=== PATIENT | female | born 1935 | race Caucasian/White ===

== ENCOUNTER 2022-05-18 10:27 | Inpatient (IN) | payer MEDICARE ==
[2022-05-18 11:20] LABS: #Monocytes 0.6 10x3/uL (0.0-1.1); #Neutrophils 6.3 10x3/uL (1.5-8.4); %Basophils 0.3 % (0.0-2.0); %Eosinophils 0.1 % (0.0-6.0); %Lymphocytes 8.1 % (18.0-47.0); %Monocytes 7.7 % (0.0-10.0); %Neutrophils 83.5 % (40.0-75.0); Hemoglobin 10.7 g/dL (12.0-15.5); Mean Corpuscular HGB CONC 29.5 g/dL (32.0-36.0); Mean Corpuscular Hemoglobin 26.6 pg (27.0-33.0); Mean Corpuscular Volume 90.1 fl (81.6-98.3); Mean Platelet Volume 9.7 fl (7.4-10.4); Platelet Count 278 10x3/uL (150-450); RBC Distribution Width 16.7 % (11.5-14.5); Red Blood Cell (RBC) Count 4.03 10x6/uL (3.90-5.03); White Blood Cell (WBC) Count 7.5 10x3/uL (3.5-10.5)
[2022-05-18 11:24] LABS: ALT (SGPT) 32 U/L (8-55); AST (SGOT) 40 U/L (5-34); Albumin 3.6 g/dL (3.4-4.8); Alkaline Phosphatase 84 U/L (40-110); Anion Gap 13 mmol/L (10-20); BUN (Urea Nitrogen) 46 mg/dL (9.8-20.1); Bilirubin, Total 0.9 mg/dL (0.2-1.2); Calc. Creatinine Clearance 0 mL/min (70-130); Calcium 9.1 mg/dL (7.8-10.44); Carbon Dioxide 29 mmol/L (23-31); Chloride 103 mmol/L (98-107); Estimated GFR 37; Glucose 115 mg/dL (83-110); Potassium 4.7 mmol/L (3.5-5.1); Protein, Total 6.6 g/dL (5.8-8.1); Sodium 140 mmol/L (136-145)
[2022-05-18] MEDS ORDERED: Furosemide 40 MG/4 ML VIAL ONE (11:41)
[2022-05-18 11:57] LABS: Anisocytosis SLIGHT = 6-15 cells (100X) (0-5/hpf); Poikilocytosis SLIGHT = 6-15 cells (100X) (0-5/hpf)
[2022-05-18 12:00] LABS: Ovalocytes SLIGHT = 2-5 cells (100X) (0-1/hpf); Platelet Morphology Comment Appears Adequate
[2022-05-18] MEDS ORDERED: Ondansetron PF 4 MG/2 ML Vial IVP PRN (12:21)
[2022-05-18] MEDS ORDERED: Acetaminophen 325 MG TAB PO PRN (12:21)
[2022-05-18] MEDS ORDERED: Ondansetron ODT 4 MG TAB PO PRN (12:21)
[2022-05-18] MEDS ORDERED: Aspirin Chewable 81 MG TAB ONE (12:31)
[2022-05-18 12:55] LABS: Bilirubin Neg (Negative); Blood, Urine Negative (Negative); Clarity Clear (Clear); Glucose, Urine (Dipstick) Normal (Negative); Ketone, Urine Negative (Negative); Leukocyte 25 (Negative); Nitrite Negative (Negative); Protein, Urine (Dipstick) 30 mg/dl (Neg-Trace); Specific Gravity, Urine 1.015 (1.005-1.030); Urobilinogen Normal mg/dL (Less than 2)
[2022-05-18 13:06] LABS: PTT 38.8 sec (22.0-33.0); Prothrombin Time 85.5 sec (9.5-12.1)
[2022-05-18 13:08] LABS: RBC/HPF 0-3 HPF (0-3)
[2022-05-18 13:09] LABS: INR-International Normal Ratio 8.9
[2022-05-18 13:09] LABS: Bacteria/HPF 1+ HPF (None Seen)
[2022-05-18] MEDS ORDERED: Electrolyte Replacement Protocol 1 EACH FS SCH (13:15)
[2022-05-18 13:18] LABS: Magnesium 2.5 mg/dL (1.6-2.6)
[2022-05-18] MEDS ORDERED: Phytonadione 10 MG/ML AMP PO SCH (14:00)
[2022-05-18] MEDS ORDERED: Phytonadione 1 MG/0.5 ML Miniject SYRINGE IM SCH (14:15)
[2022-05-18 14:24] LABS: Troponin I 0.028 ng/mL (< 0.028)
[2022-05-18] MEDS ORDERED: Phytonadione 10 MG/ML AMP SC SCH (15:00)
[2022-05-18] MEDS: Furosemide 40 MG/4 ML VIAL SLOW IVP SCH (16:24)
[2022-05-18 17:04] LABS: Troponin I 0.021 ng/mL (< 0.028)
[2022-05-18] MEDS: Ipratropium Bromide 2.5 ml Neb NEB SCH (20:07)
[2022-05-18] MEDS: Verapamil 80 MG TAB PO SCH (20:51)
[2022-05-18] MEDS ORDERED: Warfarin Sodium 3 MG TAB PO SCH (21:00)
[2022-05-18 22:19] LABS: PTT 37.5 sec (22.0-33.0); Prothrombin Time 62.5 sec (9.5-12.1)
[2022-05-18 22:47] LABS: INR-International Normal Ratio 6.4
[2022-05-19 04:39] LABS: #Monocytes 0.6 10x3/uL (0.0-1.1); #Neutrophils 5.4 10x3/uL (1.5-8.4); %Basophils 0.3 % (0.0-2.0); %Eosinophils 0.5 % (0.0-6.0); %Lymphocytes 7.8 % (18.0-47.0); %Neutrophils 82.1 % (40.0-75.0); Hemoglobin 10.1 g/dL (12.0-15.5); Mean Corpuscular HGB CONC 29.9 g/dL (32.0-36.0); Mean Corpuscular Hemoglobin 26.9 pg (27.0-33.0); Mean Corpuscular Volume 89.9 fl (81.6-98.3); Mean Platelet Volume 9.4 fl (7.4-10.4); Platelet Count 259 10x3/uL (150-450); RBC Distribution Width 16.6 % (11.5-14.5); Red Blood Cell (RBC) Count 3.76 10x6/uL (3.90-5.03); White Blood Cell (WBC) Count 6.6 10x3/uL (3.5-10.5)
[2022-05-19 04:45] LABS: ALT (SGPT) 25 U/L (8-55); AST (SGOT) 31 U/L (5-34); Albumin 3.4 g/dL (3.4-4.8); Alkaline Phosphatase 80 U/L (40-110); Anion Gap 13 mmol/L (10-20); BUN (Urea Nitrogen) 43 mg/dL (9.8-20.1); Bilirubin, Total 0.8 mg/dL (0.2-1.2); Calc. Creatinine Clearance 77 mL/min (70-130); Calcium 8.7 mg/dL (7.8-10.44); Carbon Dioxide 30 mmol/L (23-31); Chloride 103 mmol/L (98-107); Estimated GFR 43; Globulin 2.6 g/dL (2.4-3.5); Glucose 118 mg/dL (83-110); Phosphorus 2.9 mg/dL (2.3-4.7); Potassium 4.3 mmol/L (3.5-5.1); Sodium 142 mmol/L (136-145)
[2022-05-19] MEDS: Furosemide 40 MG/4 ML VIAL SLOW IVP SCH ×2 (07:37→14:32)
[2022-05-19] MEDS: Ipratropium Bromide 2.5 ml Neb NEB SCH ×2 (08:30→20:22)
[2022-05-19 09:15] VITALS: BMI 22.7
[2022-05-19] MEDS: Aspirin Chewable 81 MG TAB PO SCH (09:16)
[2022-05-19] MEDS: Aspirin 81 mg Enteric Coated Tablet PO SCH (09:16)
[2022-05-19] MEDS: Atenolol 50 MG TAB PO SCH (09:16)
[2022-05-19] MEDS: Verapamil 80 MG TAB PO SCH ×2 (09:16→21:26)
[2022-05-19 09:59] LABS: INR-International Normal Ratio 3.3; Prothrombin Time 33.7 sec (9.5-12.1)
[2022-05-20 04:05] LABS: #Monocytes 0.7 10x3/uL (0.0-1.1); #Neutrophils 5.7 10x3/uL (1.5-8.4); %Basophils 0.1 % (0.0-2.0); %Eosinophils 0.4 % (0.0-6.0); %Lymphocytes 12.5 % (18.0-47.0); %Monocytes 9.3 % (0.0-10.0); %Neutrophils 77.3 % (40.0-75.0); Hemoglobin 10.2 g/dL (12.0-15.5); Mean Corpuscular Hemoglobin 26.3 pg (27.0-33.0); Mean Corpuscular Volume 90.7 fl (81.6-98.3); Mean Platelet Volume 9.4 fl (7.4-10.4); Platelet Count 236 10x3/uL (150-450); RBC Distribution Width 16.4 % (11.5-14.5); Red Blood Cell (RBC) Count 3.88 10x6/uL (3.90-5.03); White Blood Cell (WBC) Count 7.4 10x3/uL (3.5-10.5)
[2022-05-20 04:21] LABS: Polychromasia SLIGHT = 2-3 cells (100X) (0-2/hpf)
[2022-05-20 04:22] LABS: Hypochromia SLIGHT = 6-15 cells (100X) (0-5/hpf); Platelet Morphology Comment Appears Adequate; Target Cells SLIGHT = 2-5 cells (100X) (0-1/hpf)
[2022-05-20 04:32] LABS: ALT (SGPT) 25 U/L (8-55); AST (SGOT) 34 U/L (5-34); Albumin 3.4 g/dL (3.4-4.8); Alkaline Phosphatase 86 U/L (40-110); Anion Gap 13 mmol/L (10-20); BUN (Urea Nitrogen) 37 mg/dL (9.8-20.1); Bilirubin, Total 0.8 mg/dL (0.2-1.2); Calc. Creatinine Clearance 40 mL/min (70-130); Calcium 8.9 mg/dL (7.8-10.44); Carbon Dioxide 33 mmol/L (23-31); Chloride 100 mmol/L (98-107); Estimated GFR 51; Globulin 2.7 g/dL (2.4-3.5); Glucose 124 mg/dL (83-110); Potassium 4.2 mmol/L (3.5-5.1); Protein, Total 6.1 g/dL (5.8-8.1); Sodium 142 mmol/L (136-145)
[2022-05-20] MEDS: Furosemide 40 MG/4 ML VIAL SLOW IVP SCH ×2 (05:50→14:14)
[2022-05-20] MEDS: Aspirin 81 mg Enteric Coated Tablet PO SCH (08:42)
[2022-05-20] MEDS: Verapamil 80 MG TAB PO SCH ×2 (08:43→21:15)
[2022-05-20] MEDS: Atenolol 50 MG TAB PO SCH (08:43)
[2022-05-20] MEDS: Aspirin Chewable 81 MG TAB PO SCH (08:44)
[2022-05-20] MEDS: Ipratropium Bromide 2.5 ml Neb NEB SCH ×3 (09:05→21:00)
[2022-05-21 04:33] LABS: #Eosinphils 0.1 10x3/uL (0.0-0.5); #Monocytes 0.7 10x3/uL (0.0-1.1); #Neutrophils 5.7 10x3/uL (1.5-8.4); %Basophils 0.1 % (0.0-2.0); %Eosinophils 0.7 % (0.0-6.0); %Lymphocytes 8.2 % (18.0-47.0); %Neutrophils 80.6 % (40.0-75.0); Hemoglobin 9.6 g/dL (12.0-15.5); Mean Corpuscular HGB CONC 29.6 g/dL (32.0-36.0); Mean Corpuscular Hemoglobin 26.7 pg (27.0-33.0); Mean Platelet Volume 9.5 fl (7.4-10.4); Platelet Count 224 10x3/uL (150-450); RBC Distribution Width 16.2 % (11.5-14.5); White Blood Cell (WBC) Count 7.1 10x3/uL (3.5-10.5)
[2022-05-21 04:49] LABS: ALT (SGPT) 23 U/L (8-55); AST (SGOT) 30 U/L (5-34); Albumin 3.2 g/dL (3.4-4.8); Alkaline Phosphatase 85 U/L (40-110); Anion Gap 11 mmol/L (10-20); BUN (Urea Nitrogen) 36 mg/dL (9.8-20.1); Bilirubin, Total 0.7 mg/dL (0.2-1.2); Calc. Creatinine Clearance 42 mL/min (70-130); Calcium 8.7 mg/dL (7.8-10.44); Carbon Dioxide 35 mmol/L (23-31); Chloride 98 mmol/L (98-107); Estimated GFR 50; Globulin 2.6 g/dL (2.4-3.5); Glucose 125 mg/dL (83-110); Potassium 4.1 mmol/L (3.5-5.1); Protein, Total 5.8 g/dL (5.8-8.1); Sodium 140 mmol/L (136-145)
[2022-05-21] MEDS: Furosemide 40 MG/4 ML VIAL SLOW IVP SCH ×2 (06:20→14:43)
[2022-05-21] MEDS: Ipratropium Bromide 2.5 ml Neb NEB SCH ×2 (07:25→20:26)
[2022-05-21] MEDS: Aspirin Chewable 81 MG TAB PO SCH ×2 (09:46→09:50)
[2022-05-21] MEDS: Verapamil 80 MG TAB PO SCH ×2 (09:46→21:37)
[2022-05-21] MEDS: Aspirin 81 mg Enteric Coated Tablet PO SCH (09:46)
[2022-05-21] MEDS: Atenolol 50 MG TAB PO SCH (09:46)
[2022-05-21] MEDS ORDERED: FLU VACC QS2022-23(65YR UP)/PF 240 MCG/0.7 ML SYRINGE IM ONE (17:30)
[2022-05-21 17:49] LABS: INR-International Normal Ratio 1.3; Prothrombin Time 13.7 sec (9.5-12.1)
[2022-05-22 04:18] LABS: INR-International Normal Ratio 1.3
[2022-05-22 04:19] LABS: #Monocytes 0.6 10x3/uL (0.0-1.1); #Neutrophils 6.7 10x3/uL (1.5-8.4); %Basophils 0.1 % (0.0-2.0); %Eosinophils 0.4 % (0.0-6.0); %Lymphocytes 8.7 % (18.0-47.0); %Monocytes 7.4 % (0.0-10.0); %Neutrophils 83.2 % (40.0-75.0); Hemoglobin 10.1 g/dL (12.0-15.5); Mean Corpuscular HGB CONC 29.4 g/dL (32.0-36.0); Mean Corpuscular Hemoglobin 26.9 pg (27.0-33.0); Mean Corpuscular Volume 91.5 fl (81.6-98.3); Mean Platelet Volume 9.5 fl (7.4-10.4); Platelet Count 238 10x3/uL (150-450); RBC Distribution Width 16.6 % (11.5-14.5); Red Blood Cell (RBC) Count 3.75 10x6/uL (3.90-5.03); White Blood Cell (WBC) Count 8.1 10x3/uL (3.5-10.5)
[2022-05-22 04:28] LABS: ALT (SGPT) 24 U/L (8-55); AST (SGOT) 31 U/L (5-34); Albumin 3.4 g/dL (3.4-4.8); Alkaline Phosphatase 100 U/L (40-110); Anion Gap 17 mmol/L (10-20); BUN (Urea Nitrogen) 37 mg/dL (9.8-20.1); Bilirubin, Total 0.6 mg/dL (0.2-1.2); Calc. Creatinine Clearance 44 mL/min (70-130); Calcium 9.2 mg/dL (7.8-10.44); Carbon Dioxide 35 mmol/L (23-31); Chloride 98 mmol/L (98-107); Estimated GFR 51; Glucose 140 mg/dL (83-110); Potassium 4.9 mmol/L (3.5-5.1); Protein, Total 6.4 g/dL (5.8-8.1); Sodium 145 mmol/L (136-145)
[2022-05-22] MEDS: Furosemide 40 MG/4 ML VIAL SLOW IVP SCH ×2 (05:41→13:05)
[2022-05-22] MEDS: Ipratropium Bromide 2.5 ml Neb NEB SCH ×2 (06:55→19:24)
[2022-05-22] MEDS: Aspirin Chewable 81 MG TAB PO SCH (09:33)
[2022-05-22] MEDS: Atenolol 50 MG TAB PO SCH (09:36)
[2022-05-22] MEDS: AcetaZOLAMIDE 250 MG TAB PO SCH ×2 (09:36→21:27)
[2022-05-22] MEDS: Verapamil 80 MG TAB PO SCH ×2 (09:36→21:27)
[2022-05-22] MEDS: Aspirin 81 mg Enteric Coated Tablet PO SCH (09:40)
[2022-05-22] MEDS: Warfarin Sodium 3 MG TAB PO SCH (16:09)
[2022-05-23 04:43] LABS: #Eosinphils 0.1 10x3/uL (0.0-0.5); #Monocytes 0.8 10x3/uL (0.0-1.1); #Neutrophils 5.8 10x3/uL (1.5-8.4); %Basophils 0.4 % (0.0-2.0); %Lymphocytes 8.6 % (18.0-47.0); %Monocytes 10.3 % (0.0-10.0); %Neutrophils 79.4 % (40.0-75.0); Hemoglobin 9.8 g/dL (12.0-15.5); Mean Corpuscular HGB CONC 29.9 g/dL (32.0-36.0); Mean Corpuscular Hemoglobin 27.2 pg (27.0-33.0); Mean Corpuscular Volume 91.1 fl (81.6-98.3); Mean Platelet Volume 9.4 fl (7.4-10.4); Platelet Count 223 10x3/uL (150-450); RBC Distribution Width 16.8 % (11.5-14.5); White Blood Cell (WBC) Count 7.3 10x3/uL (3.5-10.5)
[2022-05-23 04:46] LABS: INR-International Normal Ratio 1.3; Prothrombin Time 14.2 sec (9.5-12.1)
[2022-05-23 04:59] LABS: ALT (SGPT) 25 U/L (8-55); AST (SGOT) 33 U/L (5-34); Albumin 3.2 g/dL (3.4-4.8); Alkaline Phosphatase 90 U/L (40-110); Anion Gap 13 mmol/L (10-20); BUN (Urea Nitrogen) 32 mg/dL (9.8-20.1); Bilirubin, Total 0.7 mg/dL (0.2-1.2); Calc. Creatinine Clearance 50 mL/min (70-130); Calcium 8.9 mg/dL (7.8-10.44); Carbon Dioxide 35 mmol/L (23-31); Chloride 98 mmol/L (98-107); Estimated GFR 60; Globulin 2.7 g/dL (2.4-3.5); Glucose 112 mg/dL (83-110); Potassium 3.8 mmol/L (3.5-5.1); Protein, Total 5.9 g/dL (5.8-8.1); Sodium 142 mmol/L (136-145)
[2022-05-23] MEDS: Furosemide 40 MG/4 ML VIAL SLOW IVP SCH ×3 (05:53→16:15)
[2022-05-23] MEDS: Ipratropium Bromide 2.5 ml Neb NEB SCH ×2 (06:45→19:08)
[2022-05-23] MEDS: Verapamil 80 MG TAB PO SCH ×2 (08:57→22:15)
[2022-05-23] MEDS: AcetaZOLAMIDE 250 MG TAB PO SCH ×2 (08:57→22:15)
[2022-05-23] MEDS: Atenolol 50 MG TAB PO SCH (08:57)
[2022-05-23] MEDS: Aspirin 81 mg Enteric Coated Tablet PO SCH (08:57)
[2022-05-23] MEDS ORDERED: Warfarin Sodium 2 MG TAB PO SCH (17:00)
[2022-05-23] MEDS ORDERED: VANCOMYCIN 1.25 GM/250 ML BAG 1.25 GM in Premix Bag 1 BAG IVPB SCH (17:00)
[2022-05-23] MEDS: Warfarin Sodium 3 MG TAB PO SCH (17:53)
[2022-05-23] MEDS: Cefepime 1 GM in Sodium Chloride 0.9% 100 ML IVPB SCH (22:15)
[2022-05-24 05:00] LABS: INR-International Normal Ratio 1.5; Prothrombin Time 16.1 sec (9.5-12.1)
[2022-05-24] MEDS: Furosemide 40 MG/4 ML VIAL SLOW IVP SCH ×2 (05:03→13:03)
[2022-05-24 05:10] LABS: Anion Gap 15 mmol/L (10-20); BUN (Urea Nitrogen) 35 mg/dL (9.8-20.1); Calc. Creatinine Clearance 43 mL/min (70-130); Calcium 9.2 mg/dL (7.8-10.44); Carbon Dioxide 30 mmol/L (23-31); Chloride 100 mmol/L (98-107); Estimated GFR 51; Glucose 123 mg/dL (83-110); Potassium 3.5 mmol/L (3.5-5.1); Sodium 141 mmol/L (136-145)
[2022-05-24] MEDS ORDERED: Potassium Chloride 20 MEQ TAB PO SCH (06:00)
[2022-05-24] MEDS: Ipratropium Bromide 2.5 ml Neb NEB SCH ×2 (07:05→19:21)
[2022-05-24] MEDS: Cefepime 1 GM in Sodium Chloride 0.9% 100 ML IVPB SCH ×2 (08:45→20:37)
[2022-05-24] MEDS: AcetaZOLAMIDE 250 MG TAB PO SCH ×2 (08:45→20:38)
[2022-05-24] MEDS: Aspirin 81 mg Enteric Coated Tablet PO SCH (08:45)
[2022-05-24] MEDS: Verapamil 80 MG TAB PO SCH ×2 (08:45→20:38)
[2022-05-24] MEDS: Atenolol 50 MG TAB PO SCH (09:09)
[2022-05-24] MEDS: Vancomycin HCl 750 MG in Sodium Chloride 0.9% 250 ML 250 ML IVPB SCH (13:03)
[2022-05-24] MEDS: Warfarin Sodium 3 MG TAB PO SCH (16:31)
[2022-05-25] MEDS: Vancomycin HCl 750 MG in Sodium Chloride 0.9% 250 ML 250 ML IVPB SCH (05:35)
[2022-05-25] MEDS: Furosemide 40 MG/4 ML VIAL SLOW IVP SCH (05:35)
[2022-05-25 06:05] LABS: INR-International Normal Ratio 2.7; Prothrombin Time 27.7 sec (9.5-12.1)
[2022-05-25 06:10] LABS: Anion Gap 12 mmol/L (10-20); BUN (Urea Nitrogen) 37 mg/dL (9.8-20.1); Calc. Creatinine Clearance 46 mL/min (70-130); Calcium 9.1 mg/dL (7.8-10.44); Carbon Dioxide 28 mmol/L (23-31); Chloride 105 mmol/L (98-107); Estimated GFR 56; Glucose 110 mg/dL (83-110); Potassium 3.7 mmol/L (3.5-5.1); Sodium 141 mmol/L (136-145)
[2022-05-25] MEDS: Ipratropium Bromide 2.5 ml Neb NEB SCH (07:05)
[2022-05-25] MEDS: Atenolol 50 MG TAB PO SCH (08:54)
[2022-05-25] MEDS: Aspirin 81 mg Enteric Coated Tablet PO SCH (08:54)
[2022-05-25] MEDS: Cefepime 1 GM in Sodium Chloride 0.9% 100 ML IVPB SCH (08:54)
[2022-05-25] MEDS: Verapamil 80 MG TAB PO SCH (08:54)
[2022-05-25] MEDS: AcetaZOLAMIDE 250 MG TAB PO SCH (08:54)
[2022-05-25] MEDS ORDERED: Furosemide 20 MG TAB PO SCH (09:00)
[2022-05-25 12:40] VITALS: TEMP 98
[2022-05-25 14:40] VITALS: BP 120/73
== END 2022-05-25 15:56 | disposition home or self-care (01) | DRG 291 ==
LOC: CSHERS 10:27 → CSHERHOLD 13:25 → CSHTELE 14:44 → OBSVTOIN 22:18
PROVIDERS: ADMIT Hospitalist; ATTEND Internal Medicine
DX: I11.0 Hypertensive heart disease with heart failure (principal); I50.33 Acute on chronic diastolic (congestive) heart failure; J96.21 Acute and chronic respiratory failure with hypoxia; J18.9 Pneumonia, unspecified organism; I48.20 Chronic atrial fibrillation, unspecified; J44.1 Chronic obstructive pulmonary disease with (acute) exacerbation; J44.0 Chronic obstructive pulmonary disease with (acute) lower respiratory infection; I27.20 Pulmonary hypertension, unspecified; R91.1 Solitary pulmonary nodule; I07.1 Rheumatic tricuspid insufficiency; Z20.822 Contact with and (suspected) exposure to COVID-19; Z79.51 Long term (current) use of inhaled steroids; Z79.82 Long term (current) use of aspirin; Z87.891 Personal history of nicotine dependence; Z98.890 Other specified postprocedural states; Z95.810 Presence of automatic (implantable) cardiac defibrillator; Z79.01 Long term (current) use of anticoagulants; Z79.899 Other long term (current) drug therapy; Z99.81 Dependence on supplemental oxygen
CPT/HCPCS: 36415; 71045; 71046; 80048; 80053; 81003; 81015; 82553; 83735; 83880; 84100; 84484; 85025; 85610; 85730; 87081; 93005; 93306; 93970; 94640; 94760; 94799; 96374; 97139; J0692; J1940; J3370; J3430; J3490; J7050; U0003; U0005

== ENCOUNTER 2022-06-07 18:26 | Inpatient (IN) | payer MEDICARE ==
[2022-06-07] MEDS ORDERED: Senokot S 8.6-50 MG TAB PO PRN (20:07)
[2022-06-07] MEDS ORDERED: Warfarin Sodium 3 MG TAB PO SCH (20:30)
[2022-06-07] MEDS ORDERED: Furosemide 40 MG/4 ML VIAL SLOW IVP SCH (20:30)
[2022-06-07] MEDS: Verapamil 80 MG TAB PO SCH (20:33)
[2022-06-07 20:46] LABS: Magnesium 2.2 mg/dL (1.6-2.6)
[2022-06-07 20:51] LABS: Troponin I 0.025 ng/mL (< 0.028)
[2022-06-08] MEDS: Ipratropium/Albuterol 3 ML NEB NEB SCH ×4 (01:24→18:38)
[2022-06-08 05:36] LABS: #Monocytes 0.6 10x3/uL (0.0-1.1); #Neutrophils 5.2 10x3/uL (1.5-8.4); %Basophils 0.6 % (0.0-2.0); %Eosinophils 0.3 % (0.0-6.0); %Lymphocytes 14.6 % (18.0-47.0); %Monocytes 8.6 % (0.0-10.0); %Neutrophils 75.6 % (40.0-75.0); Mean Corpuscular HGB CONC 28.6 g/dL (32.0-36.0); Mean Corpuscular Hemoglobin 25.6 pg (27.0-33.0); Mean Corpuscular Volume 89.7 fl (81.6-98.3); Mean Platelet Volume 8.9 fl (7.4-10.4); Platelet Count 368 10x3/uL (150-450); RBC Distribution Width 18.8 % (11.5-14.5); White Blood Cell (WBC) Count 6.9 10x3/uL (3.5-10.5)
[2022-06-08 05:43] LABS: Anion Gap 15 mmol/L (10-20); BUN (Urea Nitrogen) 32 mg/dL (9.8-20.1); Calc. Creatinine Clearance 39 mL/min (70-130); Calcium 8.7 mg/dL (7.8-10.44); Carbon Dioxide 30 mmol/L (23-31); Chloride 103 mmol/L (98-107); Estimated GFR 46; Glucose 119 mg/dL (83-110); Sodium 143 mmol/L (136-145)
[2022-06-08 05:48] LABS: INR-International Normal Ratio 3.8; Prothrombin Time 38.5 sec (9.5-12.1)
[2022-06-08] MEDS: Furosemide 40 MG/4 ML VIAL SLOW IVP SCH ×2 (06:52→14:16)
[2022-06-08] MEDS: Losartan 25 MG TAB PO SCH (08:04)
[2022-06-08] MEDS: Atenolol 50 MG TAB PO SCH (08:04)
[2022-06-08] MEDS: Verapamil 80 MG TAB PO SCH ×2 (08:04→20:20)
[2022-06-08] MEDS: Aspirin 81 mg Enteric Coated Tablet PO SCH (08:05)
[2022-06-08] MEDS: Saccharomyces boulardii 250 MG CAP PO SCH (08:05)
[2022-06-08] MEDS ORDERED: Warfarin Sodium 3 MG TAB PO SCH (17:00)
[2022-06-08] MEDS: Acetaminophen 325 MG TAB PO PRN (22:07)
[2022-06-09] MEDS: Ipratropium/Albuterol 3 ML NEB NEB SCH ×4 (02:28→19:01)
[2022-06-09 05:20] LABS: Anion Gap 14 mmol/L (10-20); BUN (Urea Nitrogen) 32 mg/dL (9.8-20.1); Calc. Creatinine Clearance 37 mL/min (70-130); Calcium 8.6 mg/dL (7.8-10.44); Carbon Dioxide 32 mmol/L (23-31); Chloride 102 mmol/L (98-107); Estimated GFR 48; Glucose 105 mg/dL (83-110); Potassium 4.5 mmol/L (3.5-5.1); Sodium 143 mmol/L (136-145)
[2022-06-09 05:25] LABS: INR-International Normal Ratio 4.2; Prothrombin Time 42.4 sec (9.5-12.1)
[2022-06-09] MEDS: Furosemide 40 MG/4 ML VIAL SLOW IVP SCH ×2 (05:27→15:32)
[2022-06-09] MEDS: Acetaminophen 325 MG TAB PO PRN (05:27)
[2022-06-09] MEDS: Losartan 25 MG TAB PO SCH ×2 (10:51→10:56)
[2022-06-09] MEDS: Aspirin 81 mg Enteric Coated Tablet PO SCH (10:52)
[2022-06-09] MEDS: Atenolol 50 MG TAB PO SCH (10:52)
[2022-06-09] MEDS: Verapamil 80 MG TAB PO SCH ×2 (10:52→20:38)
[2022-06-09] MEDS: Saccharomyces boulardii 250 MG CAP PO SCH (10:55)
[2022-06-09] MEDS ORDERED: Electrolyte Replacement Protocol 1 EACH FS SCH (19:30)
[2022-06-09] MEDS ORDERED: Lidocaine 1% (PF) 30 ML VIAL ONE (20:57)
[2022-06-09] MEDS ORDERED: CEFAZOLIN 1 GM VIAL ONE (20:58)
[2022-06-09] MEDS ORDERED: Gentamicin 80 MG/2 ML VIAL ONE (20:58)
[2022-06-10] MEDS: Ipratropium/Albuterol 3 ML NEB NEB SCH ×4 (01:08→18:45)
[2022-06-10 06:05] LABS: INR-International Normal Ratio 2.8; Prothrombin Time 28.8 sec (9.5-12.1)
[2022-06-10] MEDS: Furosemide 40 MG/4 ML VIAL SLOW IVP SCH ×2 (06:05→14:47)
[2022-06-10 06:06] LABS: #Basophils 0.1 10x3/uL (0.0-0.2); #Eosinphils 0.1 10x3/uL (0.0-0.5); #Monocytes 0.5 10x3/uL (0.0-1.1); #Neutrophils 4.6 10x3/uL (1.5-8.4); %Eosinophils 1.1 % (0.0-6.0); %Lymphocytes 13.6 % (18.0-47.0); %Monocytes 8.8 % (0.0-10.0); %Neutrophils 75.3 % (40.0-75.0); Hemoglobin 9.8 g/dL (12.0-15.5); Mean Corpuscular HGB CONC 28.6 g/dL (32.0-36.0); Mean Corpuscular Hemoglobin 25.5 pg (27.0-33.0); Mean Corpuscular Volume 89.3 fl (81.6-98.3); Platelet Count 321 10x3/uL (150-450); RBC Distribution Width 18.4 % (11.5-14.5); Red Blood Cell (RBC) Count 3.84 10x6/uL (3.90-5.03); White Blood Cell (WBC) Count 6.1 10x3/uL (3.5-10.5)
[2022-06-10 06:09] LABS: Anion Gap 12 mmol/L (10-20); BUN (Urea Nitrogen) 26 mg/dL (9.8-20.1); Calc. Creatinine Clearance 46 mL/min (70-130); Calcium 8.7 mg/dL (7.8-10.44); Carbon Dioxide 35 mmol/L (23-31); Chloride 99 mmol/L (98-107); Estimated GFR 61; Glucose 99 mg/dL (83-110); Magnesium 2.2 mg/dL (1.6-2.6); Potassium 4.5 mmol/L (3.5-5.1); Sodium 141 mmol/L (136-145)
[2022-06-10] MEDS: Losartan Potassium 50 MG TAB PO SCH (08:42)
[2022-06-10] MEDS: Saccharomyces boulardii 250 MG CAP PO SCH (08:42)
[2022-06-10] MEDS ORDERED: Warfarin Sodium 2 MG TAB PO SCH (17:00)
[2022-06-11] MEDS: Ipratropium/Albuterol 3 ML NEB NEB SCH ×4 (02:04→19:25)
[2022-06-11 05:23] LABS: INR-International Normal Ratio 1.8; Prothrombin Time 19.1 sec (9.5-12.1)
[2022-06-11 05:26] LABS: BUN (Urea Nitrogen) 26 mg/dL (9.8-20.1); Calc. Creatinine Clearance 46 mL/min (70-130); Calcium 8.8 mg/dL (7.8-10.44); Estimated GFR 61; Glucose 101 mg/dL (83-110)
[2022-06-11 05:33] LABS: Anion Gap 15 mmol/L (10-20); Carbon Dioxide 36 mmol/L (23-31); Chloride 96 mmol/L (98-107); Potassium 4.3 mmol/L (3.5-5.1); Sodium 143 mmol/L (136-145)
[2022-06-11] MEDS: Furosemide 40 MG/4 ML VIAL SLOW IVP SCH ×2 (06:25→15:03)
[2022-06-11] MEDS: Losartan Potassium 50 MG TAB PO SCH (08:39)
[2022-06-11] MEDS: Saccharomyces boulardii 250 MG CAP PO SCH (08:39)
[2022-06-11] MEDS ORDERED: Phytonadione 10 MG/ML AMP SC SCH (11:30)
[2022-06-12] MEDS: Ipratropium/Albuterol 3 ML NEB NEB SCH ×4 (01:05→20:01)
[2022-06-12 04:49] LABS: #Basophils 0.1 10x3/uL (0.0-0.2); #Eosinphils 0.1 10x3/uL (0.0-0.5); #Monocytes 0.6 10x3/uL (0.0-1.1); %Basophils 0.9 % (0.0-2.0); %Eosinophils 1.1 % (0.0-6.0); %Lymphocytes 10.6 % (18.0-47.0); %Monocytes 8.6 % (0.0-10.0); %Neutrophils 78.6 % (40.0-75.0); Hemoglobin 9.8 g/dL (12.0-15.5); Mean Corpuscular HGB CONC 28.7 g/dL (32.0-36.0); Mean Corpuscular Hemoglobin 25.6 pg (27.0-33.0); Mean Corpuscular Volume 89.3 fl (81.6-98.3); Mean Platelet Volume 8.4 fl (7.4-10.4); Platelet Count 278 10x3/uL (150-450); RBC Distribution Width 18.5 % (11.5-14.5); Red Blood Cell (RBC) Count 3.83 10x6/uL (3.90-5.03); White Blood Cell (WBC) Count 6.4 10x3/uL (3.5-10.5)
[2022-06-12 04:53] LABS: INR-International Normal Ratio 1.5; Prothrombin Time 15.6 sec (9.5-12.1)
[2022-06-12 05:05] LABS: BUN (Urea Nitrogen) 24 mg/dL (9.8-20.1); Calc. Creatinine Clearance 48 mL/min (70-130); Calcium 8.9 mg/dL (7.8-10.44); Estimated GFR 64; Glucose 101 mg/dL (83-110)
[2022-06-12 05:13] LABS: Anion Gap 14 mmol/L (10-20); Carbon Dioxide 37 mmol/L (23-31); Chloride 96 mmol/L (98-107); Potassium 4.9 mmol/L (3.5-5.1); Sodium 142 mmol/L (136-145)
[2022-06-12 05:25] LABS: Anisocytosis SLIGHT = 6-15 cells (100X) (0-5/hpf); Hypochromia SLIGHT = 6-15 cells (100X) (0-5/hpf); Platelet Morphology Comment Appears Adequate; Polychromasia SLIGHT = 2-3 cells (100X) (0-2/hpf)
[2022-06-12] MEDS: Furosemide 40 MG/4 ML VIAL SLOW IVP SCH (06:15)
[2022-06-12] MEDS: Saccharomyces boulardii 250 MG CAP PO SCH (08:10)
[2022-06-12] MEDS: Losartan Potassium 50 MG TAB PO SCH (08:10)
[2022-06-12] MEDS ORDERED: Iopamidol 300 61% 100 ML VIAL FS ONE (09:51)
[2022-06-12] MEDS ORDERED: Lidocaine 1% (PF) 30 ML VIAL ONE (11:09)
[2022-06-12] MEDS ORDERED: CEFAZOLIN 1 GM VIAL ONE (11:09)
[2022-06-12] MEDS ORDERED: Gentamicin 80 MG/2 ML VIAL ONE (11:09)
[2022-06-12] MEDS ORDERED: Sodium Chloride 0.9% 2,000 ML ONE (11:10)
[2022-06-12] MEDS ORDERED: Fentanyl 100 MCG/2 ML VIAL ONE (11:56)
[2022-06-12] MEDS ORDERED: Midazolam HCl 2 mg/2 ml Vial ONE (11:57)
[2022-06-12] MEDS: Warfarin Sodium 2 MG TAB PO SCH (16:38)
[2022-06-12] MEDS: Cephalexin 250 MG CAP PO SCH (21:20)
[2022-06-13] MEDS: Ipratropium/Albuterol 3 ML NEB NEB SCH ×4 (02:42→19:07)
[2022-06-13 05:07] LABS: INR-International Normal Ratio 1.3; Prothrombin Time 13.5 sec (9.5-12.1)
[2022-06-13 05:16] LABS: Anion Gap 14 mmol/L (10-20); BUN (Urea Nitrogen) 26 mg/dL (9.8-20.1); Calc. Creatinine Clearance 50 mL/min (70-130); Calcium 9.1 mg/dL (7.8-10.44); Carbon Dioxide 37 mmol/L (23-31); Chloride 95 mmol/L (98-107); Estimated GFR 67; Glucose 115 mg/dL (83-110); Potassium 4.6 mmol/L (3.5-5.1); Sodium 141 mmol/L (136-145)
[2022-06-13] MEDS: Furosemide 40 MG TAB PO SCH (07:56)
[2022-06-13] MEDS: Cephalexin 250 MG CAP PO SCH ×2 (07:56→21:39)
[2022-06-13] MEDS: Saccharomyces boulardii 250 MG CAP PO SCH (07:57)
[2022-06-13] MEDS: Losartan Potassium 50 MG TAB PO SCH (07:57)
[2022-06-13] MEDS: Warfarin Sodium 2 MG TAB PO SCH (17:36)
[2022-06-14] MEDS: Acetaminophen 325 MG TAB PO PRN ×2 (00:42→08:18)
[2022-06-14] MEDS: Ipratropium/Albuterol 3 ML NEB NEB SCH ×4 (01:13→19:28)
[2022-06-14 04:40] LABS: INR-International Normal Ratio 1.3; Prothrombin Time 14.4 sec (9.5-12.1)
[2022-06-14 04:50] LABS: BUN (Urea Nitrogen) 21 mg/dL (9.8-20.1); Calc. Creatinine Clearance 53 mL/min (70-130); Calcium 8.8 mg/dL (7.8-10.44); Estimated GFR 73; Glucose 102 mg/dL (83-110)
[2022-06-14 04:57] LABS: Anion Gap 13 mmol/L (10-20); Carbon Dioxide 38 mmol/L (23-31); Chloride 93 mmol/L (98-107); Sodium 140 mmol/L (136-145)
[2022-06-14 05:41] VITALS: BMI 23.0
[2022-06-14] MEDS: Cephalexin 250 MG CAP PO SCH ×2 (08:17→23:02)
[2022-06-14] MEDS: Saccharomyces boulardii 250 MG CAP PO SCH (08:17)
[2022-06-14] MEDS: Losartan Potassium 50 MG TAB PO SCH (08:18)
[2022-06-14] MEDS: Furosemide 40 MG TAB PO SCH (08:18)
[2022-06-14] MEDS: Warfarin Sodium 2 MG TAB PO SCH (17:03)
[2022-06-15] MEDS: Ipratropium/Albuterol 3 ML NEB NEB SCH ×4 (01:25→19:30)
[2022-06-15 06:40] LABS: #Monocytes 0.4 10x3/uL (0.0-1.1); #Neutrophils 4.2 10x3/uL (1.5-8.4); %Basophils 0.7 % (0.0-2.0); %Eosinophils 0.7 % (0.0-6.0); %Lymphocytes 13.3 % (18.0-47.0); %Monocytes 7.9 % (0.0-10.0); %Neutrophils 77.2 % (40.0-75.0); Hemoglobin 9.6 g/dL (12.0-15.5); Mean Corpuscular HGB CONC 28.5 g/dL (32.0-36.0); Mean Corpuscular Hemoglobin 25.3 pg (27.0-33.0); Mean Corpuscular Volume 88.9 fl (81.6-98.3); Mean Platelet Volume 8.5 fl (7.4-10.4); Platelet Count 207 10x3/uL (150-450); RBC Distribution Width 18.8 % (11.5-14.5); Red Blood Cell (RBC) Count 3.79 10x6/uL (3.90-5.03); White Blood Cell (WBC) Count 5.4 10x3/uL (3.5-10.5)
[2022-06-15 06:45] LABS: INR-International Normal Ratio 1.8
[2022-06-15 07:03] LABS: BUN (Urea Nitrogen) 18 mg/dL (9.8-20.1); Calc. Creatinine Clearance 51 mL/min (70-130); Calcium 9.3 mg/dL (7.8-10.44); Estimated GFR 70; Glucose 107 mg/dL (83-110)
[2022-06-15 07:10] LABS: Anion Gap 14 mmol/L (10-20); Carbon Dioxide 39 mmol/L (23-31); Chloride 94 mmol/L (98-107); Potassium 5.5 mmol/L (3.5-5.1); Sodium 141 mmol/L (136-145)
[2022-06-15] MEDS: Furosemide 40 MG TAB PO SCH (08:04)
[2022-06-15] MEDS: Losartan Potassium 50 MG TAB PO SCH (08:04)
[2022-06-15] MEDS: Saccharomyces boulardii 250 MG CAP PO SCH (08:04)
[2022-06-15] MEDS: Cephalexin 250 MG CAP PO SCH ×2 (08:05→21:15)
[2022-06-15] MEDS: Acetaminophen 325 MG TAB PO PRN ×2 (08:05→21:15)
[2022-06-15 12:00] LABS: Potassium 4.6 mmol/L (3.5-5.1)
[2022-06-15] MEDS: Warfarin Sodium 2.5 MG TAB PO SCH (16:56)
[2022-06-16] MEDS: Ipratropium/Albuterol 3 ML NEB NEB SCH ×4 (00:53→18:48)
[2022-06-16] MEDS: Acetaminophen 325 MG TAB PO PRN (04:59)
[2022-06-16 06:10] LABS: #Eosinphils 0.1 10x3/uL (0.0-0.5); #Monocytes 0.6 10x3/uL (0.0-1.1); %Basophils 0.7 % (0.0-2.0); %Eosinophils 1.1 % (0.0-6.0); %Monocytes 10.6 % (0.0-10.0); %Neutrophils 74.4 % (40.0-75.0); Hemoglobin 9.1 g/dL (12.0-15.5); Mean Corpuscular HGB CONC 28.5 g/dL (32.0-36.0); Mean Corpuscular Hemoglobin 25.6 pg (27.0-33.0); Mean Corpuscular Volume 89.6 fl (81.6-98.3); Mean Platelet Volume 8.5 fl (7.4-10.4); Platelet Count 179 10x3/uL (150-450); Red Blood Cell (RBC) Count 3.56 10x6/uL (3.90-5.03); White Blood Cell (WBC) Count 5.4 10x3/uL (3.5-10.5)
[2022-06-16 06:25] LABS: BUN (Urea Nitrogen) 24 mg/dL (9.8-20.1); Calc. Creatinine Clearance 49 mL/min (70-130); Calcium 9.3 mg/dL (7.8-10.44); Estimated GFR 66; Glucose 134 mg/dL (83-110); INR-International Normal Ratio 1.9; Prothrombin Time 20.4 sec (9.5-12.1)
[2022-06-16 06:32] LABS: Anion Gap 16 mmol/L (10-20); Carbon Dioxide 35 mmol/L (23-31); Chloride 95 mmol/L (98-107); Potassium 5.2 mmol/L (3.5-5.1); Sodium 141 mmol/L (136-145)
[2022-06-16] MEDS: Furosemide 40 MG TAB PO SCH (09:10)
[2022-06-16] MEDS: Cephalexin 250 MG CAP PO SCH ×2 (09:11→21:15)
[2022-06-16] MEDS: Losartan Potassium 50 MG TAB PO SCH (09:11)
[2022-06-16] MEDS: Saccharomyces boulardii 250 MG CAP PO SCH (09:12)
[2022-06-16] MEDS: Warfarin Sodium 2.5 MG TAB PO SCH (16:26)
[2022-06-17] MEDS: Acetaminophen 325 MG TAB PO PRN (00:08)
[2022-06-17] MEDS: Ipratropium/Albuterol 3 ML NEB NEB SCH ×4 (01:34→19:13)
[2022-06-17 05:58] LABS: BUN (Urea Nitrogen) 23 mg/dL (9.8-20.1); Calc. Creatinine Clearance 51 mL/min (70-130); Estimated GFR 69; Glucose 118 mg/dL (83-110)
[2022-06-17 06:02] LABS: #Basophils 0.1 10x3/uL (0.0-0.2); #Eosinphils 0.1 10x3/uL (0.0-0.5); #Monocytes 0.5 10x3/uL (0.0-1.1); #Neutrophils 4.3 10x3/uL (1.5-8.4); %Lymphocytes 17.3 % (18.0-47.0); %Monocytes 8.8 % (0.0-10.0); %Neutrophils 71.7 % (40.0-75.0); INR-International Normal Ratio 1.9; Mean Corpuscular HGB CONC 28.2 g/dL (32.0-36.0); Mean Corpuscular Hemoglobin 25.4 pg (27.0-33.0); Mean Corpuscular Volume 90.3 fl (81.6-98.3); Mean Platelet Volume 9.6 fl (7.4-10.4); PTT 28.4 sec (22.0-33.0); Platelet Count 204 10x3/uL (150-450); Prothrombin Time 19.9 sec (9.5-12.1); RBC Distribution Width 19.3 % (11.5-14.5); Red Blood Cell (RBC) Count 3.93 10x6/uL (3.90-5.03)
[2022-06-17 06:05] LABS: Anion Gap 16 mmol/L (10-20); Carbon Dioxide 36 mmol/L (23-31); Chloride 97 mmol/L (98-107); Potassium 5.7 mmol/L (3.5-5.1); Sodium 143 mmol/L (136-145)
[2022-06-17] MEDS: Cephalexin 250 MG CAP PO SCH ×2 (08:54→20:17)
[2022-06-17] MEDS: Losartan Potassium 50 MG TAB PO SCH (08:54)
[2022-06-17] MEDS: Furosemide 40 MG TAB PO SCH (08:54)
[2022-06-17] MEDS: Saccharomyces boulardii 250 MG CAP PO SCH (08:54)
[2022-06-17] MEDS: Warfarin Sodium 3 MG TAB PO SCH (16:52)
[2022-06-18] MEDS: Acetaminophen 325 MG TAB PO PRN ×3 (00:04→23:50)
[2022-06-18] MEDS: Ipratropium/Albuterol 3 ML NEB NEB SCH ×4 (00:44→19:28)
[2022-06-18 05:55] LABS: Anion Gap 13 mmol/L (10-20); BUN (Urea Nitrogen) 21 mg/dL (9.8-20.1); Calc. Creatinine Clearance 50 mL/min (70-130); Calcium 9.5 mg/dL (7.8-10.44); Carbon Dioxide 36 mmol/L (23-31); Chloride 92 mmol/L (98-107); Estimated GFR 67; Glucose 111 mg/dL (83-110); Potassium 4.1 mmol/L (3.5-5.1); Sodium 137 mmol/L (136-145)
[2022-06-18 05:59] LABS: #Eosinphils 0.1 10x3/uL (0.0-0.5); #Monocytes 0.6 10x3/uL (0.0-1.1); #Neutrophils 3.7 10x3/uL (1.5-8.4); %Basophils 0.6 % (0.0-2.0); %Eosinophils 1.5 % (0.0-6.0); %Monocytes 11.4 % (0.0-10.0); %Neutrophils 70.1 % (40.0-75.0); Hemoglobin 9.6 g/dL (12.0-15.5); Mean Corpuscular HGB CONC 28.9 g/dL (32.0-36.0); Mean Corpuscular Hemoglobin 25.7 pg (27.0-33.0); Mean Platelet Volume 9.6 fl (7.4-10.4); Platelet Count 186 10x3/uL (150-450); RBC Distribution Width 19.6 % (11.5-14.5); Red Blood Cell (RBC) Count 3.73 10x6/uL (3.90-5.03); White Blood Cell (WBC) Count 5.3 10x3/uL (3.5-10.5)
[2022-06-18 06:04] LABS: Prothrombin Time 20.9 sec (9.5-12.1)
[2022-06-18] MEDS: Losartan Potassium 50 MG TAB PO SCH ×2 (06:05→21:27)
[2022-06-18] MEDS: Furosemide 40 MG TAB PO SCH (08:13)
[2022-06-18] MEDS: Cephalexin 250 MG CAP PO SCH ×2 (08:13→21:26)
[2022-06-18] MEDS: Saccharomyces boulardii 250 MG CAP PO SCH (08:14)
[2022-06-18] MEDS: Warfarin Sodium 3 MG TAB PO SCH (16:21)
[2022-06-19] MEDS: Ipratropium/Albuterol 3 ML NEB NEB SCH ×2 (01:10→06:55)
[2022-06-19 06:08] LABS: #Eosinphils 0.1 10x3/uL (0.0-0.5); #Monocytes 0.5 10x3/uL (0.0-1.1); #Neutrophils 2.8 10x3/uL (1.5-8.4); %Basophils 0.7 % (0.0-2.0); %Eosinophils 1.6 % (0.0-6.0); %Lymphocytes 18.3 % (18.0-47.0); %Monocytes 12.4 % (0.0-10.0); %Neutrophils 66.8 % (40.0-75.0); Hemoglobin 9.8 g/dL (12.0-15.5); Mean Corpuscular HGB CONC 28.6 g/dL (32.0-36.0); Mean Corpuscular Hemoglobin 25.8 pg (27.0-33.0); Mean Corpuscular Volume 90.3 fl (81.6-98.3); Platelet Count 173 10x3/uL (150-450); RBC Distribution Width 19.8 % (11.5-14.5); White Blood Cell (WBC) Count 4.3 10x3/uL (3.5-10.5)
[2022-06-19 06:19] LABS: BUN (Urea Nitrogen) 19 mg/dL (9.8-20.1); Calc. Creatinine Clearance 52 mL/min (70-130); Calcium 9.4 mg/dL (7.8-10.44); Estimated GFR 74; Glucose 116 mg/dL (83-110)
[2022-06-19 06:20] LABS: INR-International Normal Ratio 2.6; PTT 29.4 sec (22.0-33.0); Prothrombin Time 26.5 sec (9.5-12.1)
[2022-06-19 06:27] LABS: Anion Gap 14 mmol/L (10-20); Carbon Dioxide 35 mmol/L (23-31); Chloride 98 mmol/L (98-107); Potassium 5.3 mmol/L (3.5-5.1); Sodium 142 mmol/L (136-145)
[2022-06-19] MEDS: Furosemide 40 MG TAB PO SCH (10:03)
[2022-06-19] MEDS: Cephalexin 250 MG CAP PO SCH (10:03)
[2022-06-19] MEDS: Losartan Potassium 50 MG TAB PO SCH (10:03)
[2022-06-19] MEDS: Saccharomyces boulardii 250 MG CAP PO SCH (10:04)
[2022-06-19 13:16] VITALS: BP 145/87; TEMP 97.8
[2022-06-19] MEDS ORDERED: Warfarin Sodium 2.5 MG TAB PO SCH (17:00)
== END 2022-06-19 12:54 | disposition home or self-care (01) | DRG 242 ==
LOC: CSHTELE 18:26
PROVIDERS: ADMIT Internal Medicine; ATTEND Hospitalist
PROC: 02PA3MZ Removal of Cardiac Lead from Heart, Percutaneous Approach (ICD-10-PCS; principal; 2022-06-12)
PROC: 02HK3JZ Insertion of Pacemaker Lead into Right Ventricle, Percutaneous Approach (ICD-10-PCS; 2022-06-12)
PROC: 0JH606Z Insertion of Pacemaker, Dual Chamber into Chest Subcutaneous Tissue and Fascia, Open Approach (ICD-10-PCS; 2022-06-12)
PROC: 0JPT0PZ Removal of Cardiac Rhythm Related Device from Trunk Subcutaneous Tissue and Fascia, Open Approach (ICD-10-PCS; 2022-06-12)
DX: I13.0 Hypertensive heart and chronic kidney disease with heart failure and stage 1 through stage 4 chronic kidney disease, or unspecified chronic kidney disease (principal); I50.33 Acute on chronic diastolic (congestive) heart failure; J96.21 Acute and chronic respiratory failure with hypoxia; I48.20 Chronic atrial fibrillation, unspecified; T82.190A Other mechanical complication of cardiac electrode, initial encounter; T82.191A Other mechanical complication of cardiac pulse generator (battery), initial encounter; L76.32 Postprocedural hematoma of skin and subcutaneous tissue following other procedure; J44.9 Chronic obstructive pulmonary disease, unspecified; I07.1 Rheumatic tricuspid insufficiency; N18.30 Chronic kidney disease, stage 3 unspecified; I27.20 Pulmonary hypertension, unspecified; Z60.2 Problems related to living alone; I49.5 Sick sinus syndrome; Y83.8 Other surgical procedures as the cause of abnormal reaction of the patient, or of later complication, without mention of misadventure at the time of the procedure; R53.81 Other malaise; I73.9 Peripheral vascular disease, unspecified; I87.8 Other specified disorders of veins; Z79.01 Long term (current) use of anticoagulants; Z95.0 Presence of cardiac pacemaker; Z99.81 Dependence on supplemental oxygen; Z88.6 Allergy status to analgesic agent; Z79.82 Long term (current) use of aspirin; Z79.899 Other long term (current) drug therapy; Z87.891 Personal history of nicotine dependence; Z98.41 Cataract extraction status, right eye; Z98.42 Cataract extraction status, left eye; Z90.710 Acquired absence of both cervix and uterus; Z90.49 Acquired absence of other specified parts of digestive tract; Z88.8 Allergy status to other drugs, medicaments and biological substances
CPT/HCPCS: 33207; 33233; 36415; 71045; 80048; 83735; 84443; 85025; 85610; 85730; 87811; 93005; 93010; 93923; 94640; 94667; 94668; 94760; 94762; 97139; 99152; 99153; C1785; C1898; J0690; J1580; J1650; J1940; J2001; J2250; J3010; J7050; J7611; J7620; Q9967; U0003; U0005